=== PATIENT | female | born 1980 | race Caucasian/White ===

== ENCOUNTER 2017-04-02 11:18 | Emergency (ER) | payer MEDICAID, OTHER ==
[~2017-04-02] VITALS: Ht 160 cm; Wt 96.5 kg
[2017-04-02 11:21] VITALS: Ht 160 cm; Wt 96.5 kg
[2017-04-02] MEDS ORDERED: ONDANSETRON 4 MG INJ IV STA (12:58)
[2017-04-02] MEDS ORDERED: morphine 4 MG/ML VIAL IV STA (12:58)
--- NOTE | 2017-04-02 13:22 | ERD ---
ER Documentation Chief Complaint Date/Time DATE: 04/02/17 TIME: 13:19 Chief Complaint LEFT LOWER QUADRANT PAIN,NAUSEA HPI This is a 36-year-old female who presents to the emergency department today complaining of left-sided abdominal pain for the past month and worse for the past couple of days. Patient states that she also has bilateral back pain. States she took ibuprofen yesterday. States she had some nausea and some dizziness. States her last menstrual period was March 06. Denies any vaginal discharge or vaginal bleeding, diarrhea. ROS All systems reviewed and are negative except as per history of present illness. Medications Home Meds Active Scripts Ondansetron Hcl* (Zofran*) 4 Mg Tablet, 4 MG PO Q6H for NAUSEA AND/OR VOMITING, #30 TAB Prov:OWEN POTTER PA-C 04/02/17 Naproxen* (Naprosyn*) 500 Mg Tablet, 500 MG PO BID Y for PAIN AND/OR INFLAMMATION, #30 TAB Prov:OWEN POTTER PA-C 04/02/17 Hydrocodone/Acetaminophen ([place] 5-325 Tablet) 1 Each Tablet, 1 TAB PO Q6H Y for PAIN, #15 TAB Prov:PROOWEN CARRILLO-C 04/02/17 Allergies Allergies: Coded Allergies: Penicillins (Verified Allergy, Mild, rash, 04/02/17) Physical Exam Vitals Vital Signs Date Time Temp Pulse Resp B/P Pulse Ox O2 Delivery O2 Flow Rate FiO2 04/02/17 11:21 98.4 98 18 133/63 98 Physical Exam Const: Obese, no acute distress Head: Atraumatic Eyes: Normal Conjunctiva ENT: Normal External Ears, Nose and Mouth. Neck: Full range of motion..~ No meningismus. Resp: Clear to auscultation bilaterally Cardio: Regular rate and rhythm, no murmurs Abd: Soft, diffuse left-sided abdominal pain non distended. Normal bowel sounds. No right lower quadrant pain. No right upper quadrant pain. Skin: No petechiae or rashes Back: No midline or flank tenderness. No CVA tenderness. Bilateral paraspinal tenderness. Ext: No cyanosis, or edema Neur: Awake and alert Psych: Normal Mood and Affect Result Diagram: 04/02/17 1319 04/02/17 1319 Results 24 hrs Laboratory Tests Test 04/02/17 13:00 6/2/17 13:19 Urine Color YELLOW Urine Clarity CLEAR Urine pH 6.0 Urine Specific [place] 1.025 Urine Ketones TRACE Urine Nitrite NEGATIVE Urine Bilirubin 1+ Urine Ictotest Pending Urine Urobilinogen 1.0 E.U./dL Urine Leukocyte Esterase TRACE Urine Microscopic RBC 0-2/HPF Urine Microscopic WBC 2-5/HPF Urine Epithelial Cells FEW Urine Calcium Oxalate Crystals FEW Urine Hemoglobin TRACE Urine Glucose NEGATIVE% Urine Total Protein NEGATIVE White Blood Count 13.810^3/ul Red Blood Count 4.7510^6/ul Hemoglobin 12.5g/dl Hematocrit 39.2% Mean Corpuscular Volume 82.5fl Mean Corpuscular Hemoglobin 26.3pg Mean Corpuscular Hemoglobin Concent 31.9g/dl Red Cell Distribution Width 14.8% Platelet Count 96623^3/UL Mean Platelet Volume 10.5fl Neutrophils % 71.1% Lymphocytes % 16.9% Monocytes % 8.9% Eosinophils % 2.0% Basophils % 0.4% Nucleated Red Blood Cells % 0.0/100WBC Neutrophils # 9.810^3/ul Lymphocytes # 2.310^3/ul Monocytes # 1.210^3/ul Eosinophils # 0.310^3/ul Basophils # 0.110^3/ul Nucleated Red Blood Cells # 0.010^3/ul Sodium Level 142mmol/L Potassium Level 4.1mmol/L Chloride Level 108mmol/L Carbon Dioxide Level 24mmol/L Anion Gap 14 Blood Urea Nitrogen 13mg/dl Creatinine 0.65mg/dl Glucose Level 98mg/dl Calcium Level 9.0mg/dl Total Bilirubin 0.0mg/dl Direct Bilirubin 0.00mg/dl Indirect Bilirubin 0.0mg/dl Aspartate Amino Transf (AST/SGOT) 21IU/L Alanine Aminotransferase (ALT/SGPT) 26IU/L Alkaline Phosphatase 78IU/L Total Protein 8.3g/dl Albumin 4.7g/dl Globulin 3.60g/dl Albumin/Globulin Ratio 1.30 Lipase 79U/L Current Medications Medications (Trade) Dose Ordered Sig/[place] Route PRN Reason Start Time Stop Time Status Last Admin Dose Admin Morphine Sulfate (morphine) 4 mg ONCE STAT IV 04/02/17 12:58 04/02/17 13:00 DC 04/02/17 13:26 Ondansetron HCl (Zofran Inj) 4 mg ONCE STAT IV 04/02/17 12:58 04/02/17 13:00 DC 04/02/17 13:25 Ketorolac Tromethamine (Toradol) 30 mg ONCE STAT IV 04/02/17 14:25 04/02/17 14:26 DC 04/02/17 14:32 DIAGNOSTIC IMAGING REPORT Patient: GREGOR BROCK : 1980 Age: 36 Sex: F MR #: [id number] DOS: 04/02/17 1258 Ordering MD: OWEN POTTER PA-C Location: [facility] Room/Bed: PROCEDURE: CT Abdomen and pelvis without contrast. CLINICAL INDICATION: Abdominal Pain TECHNIQUE: CT scan of the abdomen and pelvis without contrast was performed on a multidetector high-resolution CT scan. . Coronal and sagittal reformatted images were obtained from the axial source images. Standard CT scan of the abdomen pelvis without contrast protocols were performed. The total exam CTDI equals 23.31 mGy and the total exam DLP equals 1346.26 mGy- cm. One or more of the following dose reduction techniques were used: - Automated exposure control. - Adjustment of the mA and/or kV according to patient size. Use of iterative reconstruction technique. COMPARISON: None. FINDINGS: Contiguous with the fundus of the uterus is a large 17 x 16 cm homogeneous mass likely a huge pedunculated leiomyoma. Other etiologies cannot be excluded and recommend clinical correlation and consideration of a pelvic ultrasound. As a result of the large mass there is displacement of bowel peripherally. No other evidence of pelvic masses. The urinary bladder is contracted but otherwise unremarkable. The kidneys are normal in size without calcified renal calculi or intra renal masses bilaterally. There is minimal to mild right hydronephrosis and hydroureter extending down to the level of the large mass likely due to compression of the ureters resulting in dilatation of the collecting systems. The liver spleen pancreas and adrenal glands are unremarkable. The stomach, small bowel and large bowel are unremarkable. The appendix is unremarkable. No evidence of intra-abdominal free air, free fluid, abscesses or lymphadenopathy. The lung bases are clear. The aorta is unremarkable. The osseous structures are unremarkable. IMPRESSION: 1. Large 17 x 16 cm homogeneous mass contiguous with the fundus of the uterus likely a large pedunculated leiomyoma. Other etiologies cannot be excluded and recommend consideration of a pelvic ultrasound. Note that there is minimal to mild bilateral hydronephrosis and hydroureter extending to the level of the mass secondary to compression by the large mass. No calcified urinary calculi. 2. Negative for intra-abdominal free air fluid abscesses or lymphadenopathy. 3. Unremarkable appendix. RPTAT:AAJJ Physician Galindo Date Time Electronically viewed and signed by Shayy Gannon Physician on 04/02/2017 14:12 BM/ CC: OWEN POTTER PA-C DIAGNOSTIC IMAGING REPORT Patient: GREGOR BROCK : 1980 Age: 36 Sex: F MR #: [id number] DOS: 04/02/17 0000 Ordering MD: OWEN POTTER PA-C Location: [facility] Room/Bed: PROCEDURE: US Pelvis. CLINICAL INDICATION: pelvic pain , pelvic mass TECHNIQUE: Multiple sonographic images of the pelvis were obtained utilizing a transabdominal technique. The images were reviewed on a PACS workstation. COMPARISON: 04/02/17 FINDINGS: The uterus is enlarged in size with a heterogeneous appearance of the myometrium. The uterus measures 22.1 x 11.9 x 14.3 cm. There are multiple large masses, measuring up to 12.3 x 10.2 cm. The endometrial stripe was not visualized. The ovaries were not seen. No free fluid is present within the pelvis. RPTAT: AA IMPRESSION: Markedly enlarged uterus with multiple large fibroids. Ovaries were not seen. .Carlos Becker MD, Date Time Electronically viewed and signed by .Carlos Becker MD, on 04/02/2017 15: 46 .S/ CC: OWEN POTTER PA-C Procedures/MDM This is a 36-year-old female who presents to the emergency department today for left-sided abdominal pain for the past month worse for the past couple of days. Patient had diffuse left-sided abdominal pain with some firmness on physical exam and therefore did obtain laboratory workup as well as imaging. Laboratory workup shows an elevated white blood cell count of 30.8. She is not anemic. Platelets are within normal limits. Electrolytes are within normal limits. Glucose is within normal limits. Liver functions within normal limits. Lipase is within normal limits. UA shows trace leukocyte esterase Urine test test is negative CT abdomen pelvis noncontrast shows a large 17 x 16 cm homogenous mass contiguous with the fundus of the uterus likely a large pedunculated leiomyoma. Other etiologies cannot be excluded recommend consideration of pelvic ultrasound. There is minimal to mild bilateral hydronephrosis and hydroureter extending to the level of the mass secondary to compression by the large mass. There is no calcified urinary calculi. Negative for intra-abdominal free air, fluid, abscess or lymphadenopathy. Unremarkable appendix. Ultrasound shows markedly enlarged uterus with multiple large fibroids. Uterus measures 22 x 11 x 14 cm there are multiple large masses measuring up to 12.3 x 10.2 cm She was complaining of chest pain after given the medication and therefore did obtain an EKG. EKG read and interpreted by Dr. Mcnally. Rate [address] elevation. No QT prolongation. Normal sinus rhythm. Low suspicion for acute VT, PE, pericarditis per His abdominal pain at this time most consistent with multiple large fibroids. There is no evidence to suggest acute surgical abdomen. Patient does have a mildly elevated white blood cell count however it is likely reactive. She denies any dysuria and I do not feel that her trace leukocyte Estrace is a result of serious bacterial infection or urinary tract infection. Likely dirty catch. Patient was given morphine, Zofran here in the emergency department. Patient will be given a prescription for [place],, Naprosyn Zofran for home. She was instructed to follow-up with her primary care physician or [facility] specialist. I have given her a list of resources. At this time the patient is stable for discharge and outpatient management. Patient should follow up with their PCP in the next 1-2 days. They may return to the emergency department sooner for any persistent or worsening of symptoms. Patient understood and agreed with the plan. Discussed the patient with Dr. Mcnally and he is in agreement with the plan. Departure Diagnosis: Primary Impression: Abdominal pain Abdominal location: generalized Qualified Code: R10.84 - Generalized abdominal pain Additional Impression: Fibroids Uterine leiomyoma location: unspecified location Qualified Code: D25.9 - Uterine leiomyoma, unspecified location Condition: OWEN Ma PA-C Apr 02, 2017 13:21
[2017-04-02 13:44] LABS: ADD SCAN DIFF NO
[2017-04-02 13:55] LABS: ADD UMIC YES; URINE BILIRUBIN (Dip) 1+ (NEGATIVE); URINE BLOOD (Dip) TRACE (NEGATIVE); URINE COLOR YELLOW (YELLOW); URINE GLUCOSE (Dip) NEGATIVE (NEGATIVE); URINE KETONES (Dip) TRACE (NEGATIVE); URINE LEUKOCYTE ESTERASE (Dip) TRACE (NEGATIVE); URINE NITRITE (Dip) NEGATIVE (NEGATIVE); URINE TOTAL PROTEIN (Dip) NEGATIVE (NEGATIVE); URINE UROBILINOGEN (Dip) 1.0 E.U./dL (0.1-1.0)
[2017-04-02 14:05] LABS: BASOPHIL # 0.1 10^3/ul (0.0-0.1); BASOPHILS % 0.4 % (0.0-2.0); EOSINOPHILS # 0.3 10^3/ul (0.0-0.5); HEMATOCRIT 39.2 % (37.0-47.0); HEMOGLOBIN 12.5 g/dl (12.0-16.0); LYMPHOCYTES # 2.3 10^3/ul (0.8-2.9); LYMPHOCYTES % 16.9 % (15.0-51.0); MEAN CORPUSCULAR HEMOGLOBIN 26.3 pg (29.0-33.0); MEAN CORPUSCULAR HGB CONC 31.9 g/dl (32.0-37.0); MEAN CORPUSCULAR VOLUME 82.5 fl (82.0-101.0); MEAN PLATELET VOLUME 10.5 fl (7.4-10.4); MONOCYTE # 1.2 10^3/ul (0.3-0.9); MONOCYTES % 8.9 % (0.0-11.0); NEUTROPHIL # 9.8 10^3/ul (1.6-7.5); NEUTROPHILS % 71.1 % (39.0-77.0); PLATELET COUNT 414 10^3/UL (140-415); RED BLOOD COUNT 4.75 10^6/ul (4.20-5.40); RED CELL DISTRIBUTION WIDTH 14.8 % (11.5-14.5); WHITE BLOOD COUNT 13.8 10^3/ul (4.8-10.8)
[2017-04-02 14:07] LABS: ALBUMIN 4.7 g/dl (3.3-4.9); ALBUMIN/GLOBULIN RATIO 1.3; CREATININE 0.65 mg/dl (0.44-1.00); POTASSIUM 4.1 mmol/L (3.5-5.1); TOTAL PROTEIN 8.3 g/dl (6.1-8.1)
--- NOTE | 2017-04-02 14:12 | RADRPT ---
PROCEDURE: CT Abdomen and pelvis without contrast. CLINICAL INDICATION: Abdominal Pain TECHNIQUE: CT scan of the abdomen and pelvis without contrast was performed on a multidetector hig h-resolution CT scan. . Coronal and sagittal reformatted images were obtained from the axial [facility] e images. Standard CT scan of the abdomen pelvis without contrast protocols were performed. The total exam CTDI equals 23.31 mGy and the total exam DLP equals 1346.26 mGy-cm. One or more of the following dose reduction techniques were used: - Automated exposure control. - Adjustment of the mA and/or kV according to patient size. Use of iterative reconstruction technique. COMPARISON: None. FINDINGS: Contiguous with the fundus of the uterus is a large 17 x 16 cm homogeneous mass likely a huge pedunc ulated leiomyoma. Other etiologies cannot be excluded and recommend clinical correlation and consid eration of a pelvic ultrasound. As a result of the large mass there is displacement of bowel periph erally. No other evidence of pelvic masses. The urinary bladder is contracted but otherwise unremarkable. The kidneys are normal in size without calcified renal calculi or intra renal masses bilaterally. T here is minimal to mild right hydronephrosis and hydroureter extending down to the level of the larg e mass likely due to compression of the ureters resulting in dilatation of the collecting systems. The liver spleen pancreas and adrenal glands are unremarkable. The stomach, small bowel and large b owel are unremarkable. The appendix is unremarkable. No evidence of intra-abdominal free air, free fluid, abscesses or lymphadenopathy. The lung bases are clear. The aorta is unremarkable. The osseous structures are unremarkable. IMPRESSION: 1. Large 17 x 16 cm homogeneous mass contiguous with the fundus of the uterus likely a large pedunc ulated leiomyoma. Other etiologies cannot be excluded and recommend consideration of a pelvic ultra sound. Note that there is minimal to mild bilateral hydronephrosis and hydroureter extending to the level of the mass secondary to compression by the large mass. No calcified urinary calculi. 2. Negative for intra-abdominal free air fluid abscesses or lymphadenopathy. 3. Unremarkable appendix. RPTAT:AAJJ Physician Galindo Date Time Electronically viewed and signed by Physician Galindo on 04/02/2017 14:12 BM/
[2017-04-02 14:17] LABS: URINE RBCS 0-2 /HPF (0)
[2017-04-02] MEDS ORDERED: KETOROLAC 30 MG INJ IV STA (14:25)
--- NOTE | 2017-04-02 15:46 | RADRPT ---
PROCEDURE: US Pelvis. CLINICAL INDICATION: pelvic pain , pelvic mass TECHNIQUE: Multiple sonographic images of the pelvis were obtained utilizing a transabdominal tech nique. The images were reviewed on a PACS workstation. COMPARISON: 04/02/17 FINDINGS: The uterus is enlarged in size with a heterogeneous appearance of the myometrium. The uterus measur es 22.1 x 11.9 x 14.3 cm. There are multiple large masses, measuring up to 12.3 x 10.2 cm. The endometrial stripe was not visualized. The ovaries were not seen. No free fluid is present within the pelvis. RPTAT: AA IMPRESSION: Markedly enlarged uterus with multiple large fibroids. Ovaries were not seen. .Carlos Becker MD, MD Date Time Electronically viewed and signed by .Carlos Becker MD, on 04/02/2017 15:46 .S/
[2017-04-02] MEDS ORDERED: HYDR-906 PO (16:24)
[2017-04-02] MEDS ORDERED: NAPR-260 PO (16:24)
[2017-04-02] MEDS ORDERED: ONDA4TAB8 PO (16:25)
[2017-04-02 16:27] LABS: ICTOTEST NEGATIVE (NEGATIVE)
[2017-04-02 17:28] VITALS: BP 102/64; PULSE 80; RESP 20; TEMP 98.1
== END 2017-04-02 17:36 | disposition home or self-care (01) ==
LOC: FTE 11:18
DX: R10.84 Generalized abdominal pain (principal); D25.9 Leiomyoma of uterus, unspecified; R11.0 Nausea; R10.2 Pelvic and perineal pain
CPT/HCPCS: 74176; 76856; 80053; 81001; 83690; 85025; J1885; J2270; J2405; 36415; 93005; 96374; 96375